=== PATIENT | female | born 1940 | race Caucasian/White ===

== ENCOUNTER 2019-02-22 19:01 | Inpatient (IN) | payer MEDICARE ==
--- NOTE | 2019-02-22 19:08 | NUR ---
PT IS UNABLE TO ANSWER QUESTIONS FOR SUICIDE RISK SCREENING.
[2019-02-22 19:16] VITALS: BP 152/104
--- NOTE | 2019-02-22 19:22 | NUR ---
PT UNABLE TO ANSWER QUESTIONS FOR DETAILED ASSESSMENT.
--- NOTE | 2019-02-22 19:25 | NUR ---
HAND OFF REPORT GIVEN TO ROMULO REYES
[2019-02-22 19:32] LABS: BASOPHILS 0.1 % (0-2); EOSINOPHILS 0.2 % (0-7); HEMATOCRIT 33.7 % (36.0-48.0); HEMOGLOBIN 11.3 g/dL (12-16); IMMATURE GRANULOCYTES 0.2 % (0-5); LYMPHOCYTES 5.7 % (15-50); MCH 29.4 pg (26.0-34.0); MCHC 33.5 g/dL (31.0-37.0); MCV 87.5 fL (80.0-100.0); MEAN PLATELET VOLUME 9.7 fL (7.4-10.4); MONOCYTES 3.2 % (2-11); NEUTROPHILS 90.6 % (40-80); PLATELET COUNT 161 10x3/uL (130-400); RBC 3.85 10x6/uL (4.00-5.40); RDW 13.9 % (11.5-14.5); WBC 10.3 10x3/uL (4.8-10.8)
[2019-02-22 19:42] VITALS: BP 136/94
[2019-02-22 19:43] LABS: INR 1.14 (0.85-1.17); PROTIME 14.1 SECONDS (11.6-15.0)
[2019-02-22 19:44] LABS: APTT 32.5 SECONDS (22.8-39.4)
[2019-02-22 19:53] VITALS: BP 116/69
[2019-02-22 20:05] LABS: ALBUMIN 3.4 g/dL (3.4-5.0); ALKALINE PHOSPHATASE 76 U/L (46-116); ALT (SGPT) 20 U/L (10-68); BILIRUBIN - TOTAL 0.27 mg/dL (0.2-1.3); CALC OSMOLALITY 285 mosm/kg (275-300); CALCIUM 8.2 mg/dL (8.5-10.1); CARBON DIOXIDE 21.2 mmol/L (21.0-32.0); CHLORIDE - SERUM 106 mmol/L (98-107); CREATININE - SERUM 1.1 mg/dL (0.6-1.3); GLUCOSE 157 mg/dL (74-106); POTASSIUM - SERUM 3.5 mmol/L (3.5-5.1); PROTEIN - SERUM 6.2 g/dL (6.4-8.2); SODIUM 141 mmol/L (136-145); UREA NITROGEN 18 mg/dL (7-18); eGFR NON AFRICAN AMERICAN 53 mL/min (90-120)
[2019-02-22 20:16] LABS: CKMB 1.8 U/L (0.0-3.6); CREATINE KINASE 93 UL (21-215); MAGNESIUM - SERUM 2.1 mg/dL (1.8-2.4); THYROID STIMULATING HORMONE 4.56 uIU/mL (0.36-3.74)
[2019-02-22 20:23] LABS: APPEARANCE CLEAR (CLEAR); COLOR YELLOW (YELLOW); GLUCOSE 50 mg/dL (NEGATIVE); NITRITE NEGATIVE (NEGATIVE); PROTEIN NEGATIVE (NEGATIVE); SPECIFIC GRAVITY 1.015 (1.005-1.020)
[2019-02-22 20:24] LABS: BILIRUBIN NEGATIVE (NEGATIVE); KETONE SMALL mg/dL (NEGATIVE); UROBILINOGEN NORMAL (NORMAL)
[2019-02-22 20:28] LABS: UDS - AMPHET NEGATIVE QUAL (NEGATIVE); UDS - BARB NEGATIVE QUAL (NEGATIVE); UDS - BENZO NEGATIVE QUAL (NEGATIVE); UDS - COCAINE NEGATIVE QUAL (NEGATIVE); UDS - OPIATE NEGATIVE QUAL (NEGATIVE); UDS - PCP NEGATIVE QUAL (NEGATIVE); UDS - THC NEGATIVE QUAL (NEGATIVE)
[2019-02-22 20:58] VITALS: BP 100/67
[2019-02-22 21:31] VITALS: BP 107/68
[2019-02-22 22:15] VITALS: BP 156/69
--- NOTE | 2019-02-22 22:56 | NUR ---
1954- CATH UA COMPLETED WITH IN/OUT CATH. ASEPTIC TECHNIQUE USED. 1957- TO CT ON STRETCHER BY STRATEGIC ADVISOR. 2009- RETURN TO ROOM FROM CT. 2058- REPEAT EKG COMPLETED.
--- NOTE | 2019-02-22 23:33 | NUR ---
PATIENT ARRIVED TO FLOOR. PATIENT NONVERBAL AT THIS TIME. WHEN ASKED A QUESTION SHE GRUNTS. SISTER STATES THAT SHE DOES NOT THAT ANY MEDICATION AT HOME.
[2019-02-23 01:41] LABS: CKMB 2.7 U/L (0.0-3.6); CREATINE KINASE 117 UL (21-215)
[2019-02-23 01:42] LABS: TROPONIN-I 0.161 ng/mL (0.000-0.060)
[2019-02-23 02:41] VITALS: BP 150/69; BMI 18.9
[2019-02-23 04:00] VITALS: BP 138/63
[2019-02-23 06:14] LABS: BASOPHILS 0.3 % (0-2); EOSINOPHILS 0.3 % (0-7); HEMATOCRIT 29.1 % (36.0-48.0); HEMOGLOBIN 9.6 g/dL (12-16); IMMATURE GRANULOCYTES 0.1 % (0-5); LYMPHOCYTES 11.5 % (15-50); MCH 28.9 pg (26.0-34.0); MCV 87.7 fL (80.0-100.0); MEAN PLATELET VOLUME 9.7 fL (7.4-10.4); MONOCYTES 8.2 % (2-11); NEUTROPHILS 79.6 % (40-80); PLATELET COUNT 139 10x3/uL (130-400); RBC 3.32 10x6/uL (4.00-5.40); RDW 13.9 % (11.5-14.5)
[2019-02-23 06:21] LABS: WBC 7.7 10x3/uL (4.8-10.8)
[2019-02-23 07:00] LABS: CALCIUM 8.1 mg/dL (8.5-10.1); CHLORIDE - SERUM 110 mmol/L (98-107); CKMB 2.8 U/L (0.0-3.6); CREATINE KINASE 146 UL (21-215); CREATININE - SERUM 0.9 mg/dL (0.6-1.3); PHOSPHOROUS 3.7 mg/dL (2.5-4.9); POTASSIUM - SERUM 3.8 mmol/L (3.5-5.1); SODIUM 143 mmol/L (136-145); eGFR NON AFRICAN AMERICAN 64 mL/min (90-120)
[2019-02-23 07:01] LABS: CALC OSMOLALITY 284 mosm/kg (275-300); GLUCOSE 100 mg/dL (74-106); UREA NITROGEN 12 mg/dL (7-18)
--- NOTE | 2019-02-23 07:46 | NUR ---
AM ROUNDS- PT RESTING COMFORTABLY IN BED, A/O X2, RESP EVEN AND NONALABORED ON RA. LT AC IV SL. MONITOR SHOWING SR 89. SPEECH IS A LITTLE GARBLE. HELPED PT TO BATHROOM AND BACK TO BED X1 ASSIST. PT NPO UNTIL SEEN BY PERFUME COMPOUNDER. PT'S SISTER AT BEDSIDE, CALL LIGHT IN REACH, NAD NOTED, WILL CONTINUE PLAN OF CARE.
[2019-02-23 08:33] VITALS: BP 137/59
--- NOTE | 2019-02-23 09:39 | MORECARE ---
CASE MANAGEMENT DISCHARGE SUMMARY PATIENT: CAMRON CLEARY UNIT: [id number] ADM DATE: 02/22/19 AGE: 79 : 40 SEX: F ROOM/BED: D.2123 AUTHOR: EZIO DAVE PHYSICIAN: REFERRING PHYSICIAN: ANDREW TOVAR MD DATE OF SERVICE: 02/23/19 Discharge Plan Patient Name: CAMRON CLEARY [facility] [facility] 1940 Planned Disposition: Anticipated Discharge Date: Discharge Date: Expected LOS: Initial Reviewer: [email or web address] Initial Review Date: 02/22/2019 Generated: 02/23/19 10:39 am Patient Name: CAMRON CLEARY Page [id number] at 0939 All edits/amendments must be made on the electronic document DICTATION DATE: 02/23/19937 OPTOMETRY DOCTOR: ASHLEY 02/23/19937 RPT#: [id number] DC DATE: STATUS: ADM IN [facility] [address] [place] [address] END OF REPORT
[2019-02-23 11:52] VITALS: BP 142/62
[2019-02-23 13:22] LABS: CKMB 2.6 U/L (0.0-3.6); CREATINE KINASE 165 UL (21-215); TROPONIN-I 0.096 ng/mL (0.000-0.060)
--- NOTE | 2019-02-23 13:50 | NUR ---
ASSISTED PT TO BATHROOM AND BACK TO BED, PT HAD SMALL FORMED BM. PT DENIES ANY OTHER NEEDS AT THIS TIME. CALL LIGHT IN REACH, FAMILY AT BEDSIDE, NAD NOTED, WILL CONTINUE TO MONITOR.
--- NOTE | 2019-02-23 15:00 | NUR ---
PT RESTING COMFORTABLY IN BED, DENIES ANY NEEDS AT THIS TIME. FAMILY AT BEDSIDE, CALL LIGHT IN REACH, NAD NOTED, WILL CONTINUE TO MONITOR.
[2019-02-23 15:46] VITALS: BP 138/68
--- NOTE | 2019-02-23 19:34 | NUR ---
RESUMING PATIENT CARE. PATIENT IS ALERT AND PLEASANTLY CONFUSED. RESPIRATIONS ARE EVEN AND UNLABORED. NO S/S OF DISTRESS. NO C/O PAIN. CALL LIGHT WITHIN REACH. FAMILY MEMBER CAME TO NURSES STATIONS WITH CONCERNS THAT SHE DOES NOT BELIEVE THAT IT IS SAFE ANYMORE FOR THE 2 SISTERS TO BE LIVING TOGETHER ANYMORE. THE FAMILY ARE IN THE BEGINNING STAGES OF GETTING THE 2 SISTERS ADEQUATE CARE.
[2019-02-23 20:00] VITALS: BP 148/68
[2019-02-24 04:00] VITALS: BP 152/72
[2019-02-24 05:55] LABS: ANION GAP 13.6 mmol/L (8-16); CALCIUM 7.8 mg/dL (8.5-10.1); CARBON DIOXIDE 23.7 mmol/L (21.0-32.0); POTASSIUM - SERUM 3.3 mmol/L (3.5-5.1)
[2019-02-24 07:01] LABS: BASOPHILS 0.2 % (0-2); HEMATOCRIT 32.5 % (36.0-48.0); HEMOGLOBIN 10.6 g/dL (12-16); IMMATURE GRANULOCYTES 0.3 % (0-5); LYMPHOCYTES 9.6 % (15-50); MCHC 32.6 g/dL (31.0-37.0); MCV 88.8 fL (80.0-100.0); MEAN PLATELET VOLUME 10.2 fL (7.4-10.4); MONOCYTES 9.8 % (2-11); NEUTROPHILS 79.1 % (40-80); PLATELET COUNT 145 10x3/uL (130-400); RBC 3.66 10x6/uL (4.00-5.40); RDW 14.1 % (11.5-14.5); WBC 6.2 10x3/uL (4.8-10.8)
[2019-02-24 08:13] VITALS: BP 182/84
--- NOTE | 2019-02-24 09:37 | NUR ---
TELEMETRY SR. FAMILY AT BS. CALL LIGHT IN REACH. WILL CONT. PLAN OF CARE.
[2019-02-24 12:21] VITALS: BP 147/73
[2019-02-24 16:47] VITALS: BP 158/77
--- NOTE | 2019-02-24 19:57 | NUR ---
RESUMING PATIENT CARE. PATIENT IS AERT AND PLEASANTLY CONFUSED. RESPIRATIONS ARE EVEN AND UNLABORED. NO S/S OF DISTRESS. NO C/O PAIN. CALL LIGHT WITHIN REACH. BED ALARM ENABLED. WILL CPOC.
[2019-02-24 20:00] VITALS: BP 140/79; BP 145/71
[2019-02-25] VITALS: BP 136/70
[2019-02-25 05:00] VITALS: BP 131/60
--- NOTE | 2019-02-25 07:47 | NUR ---
ASSESSMENT DONE. DENIES NEEDS.
[2019-02-25 08:01] LABS: BASOPHILS 0.3 % (0-2); EOSINOPHILS 1.8 % (0-7); HEMATOCRIT 34.1 % (36.0-48.0); HEMOGLOBIN 11.4 g/dL (12-16); IMMATURE GRANULOCYTES 0.3 % (0-5); LYMPHOCYTES 13.1 % (15-50); MCH 29.2 pg (26.0-34.0); MCHC 33.4 g/dL (31.0-37.0); MCV 87.4 fL (80.0-100.0); MEAN PLATELET VOLUME 10.1 fL (7.4-10.4); MONOCYTES 10.8 % (2-11); NEUTROPHILS 73.7 % (40-80); PLATELET COUNT 159 10x3/uL (130-400); RDW 14.1 % (11.5-14.5); WBC 6.1 10x3/uL (4.8-10.8)
[2019-02-25 08:18] LABS: ANION GAP 12.1 mmol/L (8-16); CALCIUM 8.5 mg/dL (8.5-10.1); CARBON DIOXIDE 28.9 mmol/L (21.0-32.0); CREATININE - SERUM 1.1 mg/dL (0.6-1.3); MAGNESIUM - SERUM 2.1 mg/dL (1.8-2.4)
[2019-02-25 08:19] LABS: PHOSPHOROUS 3.8 mg/dL (2.5-4.9)
--- NOTE | 2019-02-25 09:40 | EC ---
PATIENT:CAMRON CLEARY DATE OF SERVICE: 02/22/19 SEX: F MEDICAL RECORD: [id number] DATE OF : 40 LOCATION:D.M2 D.212 AGE OF PATIENT: 78 ADMISSION DATE: 02/22/19 REFERRING PHYSICIAN: INTERPRETING PHYSICIAN: MERRITT MUÑOZ MD ECHOCARDIOGRAM REPORT ECHO CHARGES 4 ECHO COMPLETE Date: 02/23/19 CLINICAL DIAGNOSIS: SVT ECHOCARDIOGRAPHIC MEASUREMENTS (adult normal given) AC root (d.<3.7cm) 2.6 cm LV Septum d (<1.2 cm> 0.60 cm Valve Excursion 1.6 cm LV Septum (systole) 0.90 cm Left Atria (s.<4.0cm> 2.3 cm LVPW d(<1.2cm) 0.70 cm RV (d.<2.3cm) 2.4 cm LVPW (sytole) 1.2 cm LV diastole(<5.6CM) 4.0 cm MV E-F(>70mm/sec) cm LV systole 2.9 cm LVOT Diameter 1.8 cm MV exc.(>10mm) 0.80 cm Est.ejection fraction (50-75%) % DOPPLER: LVIT cm/sec A 90.0 cm/sec E 123 cm/sec LA cm/sec RVSP 37 mmHg LVOT 116 cm/sec AOP1/2T 395 m/s Asc. Ao 135 cm/sec RVOT 47 cm/sec RA cm/sec PA 73 cm/sec AV Gradient Peak 7.32 mmHg AV Mean 3.98 mmHg AV Area 1.9 cm MV Gradient Peak 8.93 mmHg MV Mean 4.36 mmHg MV Area cm COMMENTS: Television News Photographer: [place] VANESSA Quality Compliance Manager: 1 Dr. Muñoz TAPE# PACS Pericardial Effusion N DATE OF SERVICE: FINDINGS: 1. Left ventricular chamber size is within normal limits. Left ventricular systolic function is normal. Overall ejection fraction estimated at 60%. 2. Left atrium, right atrium, and right ventricular chamber sizes are within normal limits. 3. Valvular structures have normal structure and motion. 4. Doppler interrogation reveals mild mitral regurgitation, mild tricuspid regurgitation, no other valvular insufficiency or stenosis. Pulmonary systolic ECHOCARDIOGRAM REPORT [id number] CAMRON CLEARY pressure is estimated 37 mmHg. 5. No evidence of pericardial effusion or left ventricular thrombus. TRANSINT:[id number] Voice Confirmation ID: [id number] DOCUMENT ID: [id number] MERRITT MUÑOZ MD at 0940 CC: [id number] DICTATION DATE: 02/23/19 155 MICROCOMPUTER TECHNICIAN: 02/24/19 0123 ADM IN [facility] [address] [place] [address]
[2019-02-25 09:55] VITALS: BP 144/63
--- NOTE | 2019-02-25 11:15 | MORECARE ---
CASE MANAGEMENT DISCHARGE SUMMARY PATIENT: CAMRON CLEARY UNIT: [id number] ADM DATE: 02/22/19 AGE: 78 : 40 SEX: F ROOM/BED: D.2123 AUTHOR: EZIO DAVE PHYSICIAN: REFERRING PHYSICIAN: ANDREW TOVAR MD DATE OF SERVICE: 02/25/19 Discharge Plan Patient Name: CAMRON CLEARY [facility] [facility] 1940 Planned Disposition: Home Anticipated Discharge Date: Discharge Date: Expected LOS: Initial Reviewer: [email or web address] Initial Review Date: 02/22/2019 Generated: 02/25/19 12:15 pm Last DP export: 02/23/19 8:39 a Patient Name: CAMRON CLEARY Page [id number] at 1115 All edits/amendments must be made on the electronic document DICTATION DATE: 02/25/19 1115 SENIOR ADVISOR: ASHLEY 02/25/19 1115 RPT#: [id number] DC DATE: STATUS: ADM IN [facility] [address] [place] [address] END OF REPORT
[2019-02-25 12:49] VITALS: BP 117/63
[2019-02-25 14:25] VITALS: BMI 18.8
--- NOTE | 2019-02-25 14:36 | NUR ---
I have reviewed this patient and I concur with the Shift Assessment completed by the Licensed Practical Nurse today this shift.
--- NOTE | 2019-02-25 17:13 | NUR ---
WITHOUT CHANGES OR DISTRESS NOTED AT THIS TIME. DENIES NEEDS.
[2019-02-25 17:57] VITALS: BP 134/68
--- NOTE | 2019-02-25 18:55 | MORECARE ---
CASE MANAGEMENT DISCHARGE SUMMARY PATIENT: CAMRON CLEARY UNIT: [id number] ADM DATE: 02/22/19 AGE: 78 : 40 SEX: F ROOM/BED: D.5693 AUTHOR: EZIO DAVE PHYSICIAN: REFERRING PHYSICIAN: ANDREW TOVAR MD DATE OF SERVICE: 02/25/19 Discharge Plan Patient Name: CAMRON CLEARY [facility] [facility] 1940 Planned Disposition: Home Anticipated Discharge Date: Discharge Date: Expected LOS: Initial Reviewer: [email or web address] Initial Review Date: 02/22/2019 Generated: 02/25/19 7:55 pm Comments DCP- Discharge Planning Updated by [email or web address]: Selina Avina on 02/25/19 5:[address] THE PATIENT LIVES AT [facility] WITH HER SISTER. THEIR COUSIN TAMMY PERALTA WILL BE STAYING WITH THEM UNTIL THE NEPHEW GETS RELOCATED IN [place], [place]. HE IS PLANNING TO FIND A [facility]AC[facility] FOR [facility]. NO ONE IN THE ROOM COULD GIVE A PCP OR PHARMACY NAME. THE NEPHEW IS MOVING TODAY AND TOMORROW. HE CAN BE REACHED BY PHONE. JIMMY HOLT- [phone] LAURENT LOUISE -SISTER- TAMMY PERALTA- COUSIN PATIENT WAS LETHARGIC YESTERDAY. SHE IS MORE ALERT TODAY. HR WELL CONTROLLED. HAD NEW ONSET SVT AND AFIB YESTERDAY. THERE ARE NO HOME HEALTH OR COMMUNITY SERVICES AT THIS TIME. CM TO FOLLOW. WILL NEED TO CONTACT THE NEPHEW. Last DP export: 02/25/19 10:15 a Patient Name: CAMRON CLEARY Page [phone] at 1855 All edits/amendments must be made on the electronic document DICTATION DATE: 02/25/191853 ANIMAL RESCUER: ASHLEY 02/25/191853 RPT#: [id number] DC DATE: STATUS: ADM IN [facility] [address] [place] [address] END OF REPORT
[2019-02-25 20:00] VITALS: BP 141/62
--- NOTE | 2019-02-25 21:02 | NUR ---
INITIAL ROUNDS COMPLETED AT 1915 HRS. PT DENIED ANY DISCOMFORT. ASSESSMENT COMPLETED AT 5HRS. VSS. SR PER CM HR 91. PT [place]. ALERT AND ORIENTED TO PERSON AND PLACE. REORIENTED TO TIME. IV TO R WRIST SL. LUNGS ESSENTIALLY CTA. HEART TONES S1 S2. PM MEDS GIVEN. PT CURRENTLY WATCHING TV. SR UP X2, CALL LIGHT WITHIN REACH AND BED ALARM ON.
--- NOTE | 2019-02-25 21:55 | NUR ---
PT ASSISTED TO BR. VOIDED MODERATE AMOUNT OF URINE. ASSISTED BACKTO BED. SR UP X2,CALL LIGHT WITHIN REACH AND BED ALARM ON.
[2019-02-26] VITALS: BP 128/68
--- NOTE | 2019-02-26 00:40 | NUR ---
PT AWAKE; DENIES ANY DISCOMFORT. SR UP X2, CALL LIGHT WITHIN REACH AND BED ALARM ON.
--- NOTE | 2019-02-26 02:46 | NUR ---
PT RESTING WITH EYES CLOSED. RESP EVEN AND REGULAR. SR UP X2, CALL LIGHT WITHIN REACH AND ABED ALARM ON.
[2019-02-26 04:00] VITALS: BP 143/74
--- NOTE | 2019-02-26 04:22 | NUR ---
PT RESTING WITH EYES CLOSED. RESP EVEN AND REGULAR. SR UP X2, CALL LIGHT WITHIN REACH AND BED ALARM ON.
[2019-02-26 04:24] LABS: BASOPHILS 0.3 % (0-2); EOSINOPHILS 3.1 % (0-7); HEMATOCRIT 32.4 % (36.0-48.0); HEMOGLOBIN 10.8 g/dL (12-16); IMMATURE GRANULOCYTES 0.2 % (0-5); LYMPHOCYTES 12.7 % (15-50); MCH 28.9 pg (26.0-34.0); MCHC 33.3 g/dL (31.0-37.0); MCV 86.6 fL (80.0-100.0); MEAN PLATELET VOLUME 9.9 fL (7.4-10.4); NEUTROPHILS 71.7 % (40-80); PLATELET COUNT 166 10x3/uL (130-400); RBC 3.74 10x6/uL (4.00-5.40); WBC 5.8 10x3/uL (4.8-10.8)
[2019-02-26 04:35] LABS: ANION GAP 12.7 mmol/L (8-16); CALCIUM 8.8 mg/dL (8.5-10.1); CARBON DIOXIDE 25.3 mmol/L (21.0-32.0); MAGNESIUM - SERUM 2.1 mg/dL (1.8-2.4); PHOSPHOROUS 3.2 mg/dL (2.5-4.9)
[2019-02-26 04:36] LABS: CREATININE - SERUM 0.8 mg/dL (0.6-1.3)
--- NOTE | 2019-02-26 06:10 | NUR ---
VSS THROUGHOUT NIGHT. SR PER CM. PT DENIED ANY DISCOMFORT. NEEDS MET; WILL CONTINUE TO MONITOR.
--- NOTE | 2019-02-26 08:37 | NUR ---
AM MEDICATIONS GIVEN AT THIS TIME. PT UP TO CHAIR DENIES ANY NEEDS AT THIS TIME. CALL LIGHT IN REACH, FAMILY AT BEDSIDE, NAD NOTED, WILL CONTINUE TO MONITOR.
[2019-02-26 10:08] VITALS: BP 142/68
--- NOTE | 2019-02-26 13:27 | NUR ---
PT UP TO CHAIR, DENIES ANY NEEDS AT THIS TIME. FAMILY AT BEDSIDE, CALL LIGHT IN REACH, NAD NOTED, WILL CONTINUE TO MONITOR.
[2019-02-26 18:55] VITALS: BP 135/61
--- NOTE | 2019-02-26 19:47 | NUR ---
INITIAL ROUNDS AND ASSESSMENT COMPLETED. PT RESTING. NO DISTRESS. MONITOR AND CPOC. CALL LIGHT IN REACH.
[2019-02-26 20:22] VITALS: BP 136/66
[2019-02-26 23:57] VITALS: BP 137/71
--- NOTE | 2019-02-27 03:53 | NUR ---
RESTING IN BED WITH EYES CLOSED. RESPS EVEN/NONLABORED. NO DISTRESS. IVF AT [facility] FOR [facility]. MONITOR AND CPOC.
[2019-02-27 05:38] VITALS: BP 152/79
[2019-02-27 06:41] LABS: BASOPHILS 0.9 % (0-2); EOSINOPHILS 5.1 % (0-7); HEMATOCRIT 32.3 % (36.0-48.0); HEMOGLOBIN 10.6 g/dL (12-16); IMMATURE GRANULOCYTES 0.4 % (0-5); LYMPHOCYTES 17.6 % (15-50); MCH 28.6 pg (26.0-34.0); MCHC 32.8 g/dL (31.0-37.0); MCV 87.3 fL (80.0-100.0); MEAN PLATELET VOLUME 9.7 fL (7.4-10.4); MONOCYTES 10.9 % (2-11); NEUTROPHILS 65.1 % (40-80); PLATELET COUNT 168 10x3/uL (130-400); RDW 13.9 % (11.5-14.5); WBC 4.5 10x3/uL (4.8-10.8)
[2019-02-27 07:10] LABS: ANION GAP 10.9 mmol/L (8-16); CALCIUM 8.6 mg/dL (8.5-10.1); CARBON DIOXIDE 27.4 mmol/L (21.0-32.0); CREATININE - SERUM 0.8 mg/dL (0.6-1.3); MAGNESIUM - SERUM 1.8 mg/dL (1.8-2.4); PHOSPHOROUS 3.8 mg/dL (2.5-4.9); POTASSIUM - SERUM 4.3 mmol/L (3.5-5.1)
--- NOTE | 2019-02-27 07:29 | NUR ---
PT IN BED, A/O X4, RESP EVEN AND NONLABORED ON RA. ANTIBIOTIC DONE INFUSING, SL RT FA IV, ORANGE CAP IN PLACE. MONITOR SHOWING SR WITH RATE OF 73, PT REQUESTED A CUP OF ICE WATER WILL PROVIDE PT WITH WATER. FAMILY AT BEDSIDE, BEDSIDE RAILS X2, CALL LIGHT IN REACH, NAD NOTED, WILL CONTINUE PLAN OF CARE.
--- NOTE | 2019-02-27 08:05 | NUR ---
NOTIFIED BY TEXTILE CONVERSION MANAGER JUDY OF HR OF 150. WENT TO CHECK ON PT, PT IN BED, JUST WAS BROUGHT BACK FROM [facility]. PT DENIES ANY PAIN OR DISCOMFORT AT THIS TIME, EATING HER BREAKFAST. CALL LIGHT IN REACH, FAMILY AT BEDSIDE, WILL CONTINUE TO MONITOR.
[2019-02-27 08:45] VITALS: BP 151/77
[2019-02-27 08:51] VITALS: BP 151/77
--- NOTE | 2019-02-27 09:16 | NUR ---
NOTIFIED DR. ROBERT OF HIGH HR IN THE 150S. PT NOW RUNNING SR 89. NO NEW ORDERS AT THIS TIME.
[2019-02-27 12:07] VITALS: BP 152/79
[2019-02-27] MEDS ORDERED: CARDIZEM30 MG PO (12:40)
[2019-02-27] MEDS ORDERED: OMNICEF300 MG PO (12:40)
--- NOTE | 2019-02-27 12:55 | NUR ---
NOTIFIED BY CREATIVE ENGAGEMENT DIRECTOR THAT PT'S HEART RATE IS NOW IN THE 140S. NOTIFIED BRANDO TIWARI, WHO STATED TO CALLED DR. ROBERT. 1300-CALLED DR. ROBERT AND INFORMED HIM ABOUT PT'S HEART RATE. NEW ORDER TO ADD SOTALOL 80MG BID.
[2019-02-27] MEDS ORDERED: BETAPACE 80 MG80 MG PO (13:16)
--- NOTE | 2019-02-27 14:26 | NUR ---
MONITOR NOW SHOWING SR 83. PT RESTING COMFORTABLY IN BED, DENIES ANY NEEDS AT THIS TIME. CALL LIGHT IN REACH, NAD NOTED, WILL CONTINUE TO MONITOR.
--- NOTE | 2019-02-27 15:17 | NUR ---
MEDICATIONS CALLED IN TO [facility] ON [address] TALKED TO GEMMA, PHARMACIST.
--- NOTE | 2019-02-27 15:43 | NUR ---
PROVIDED VERBAL AND WRITTEN DISCHARGE TEACHING TO PT, AND FAMILY, ALL VERBALIZED UNDERSTANDING REGARDING TEACHING. D/C RT FA IV WITH CATHETER TIP INTACT. PT LEFT UNIT VIA WHEELCHAIR, WITH ALL BELONGINGS, ACCOMPANIED BY FAMILY.
--- NOTE | 2019-03-01 07:59 | MORECARE ---
CASE MANAGEMENT DISCHARGE SUMMARY PATIENT: CAMRON CLEARY UNIT: [id number] ADM DATE: 02/22/19 AGE: 78 : 40 SEX: F ROOM/BED: D.8629 AUTHOR: EZIO DAVE PHYSICIAN: REFERRING PHYSICIAN: ANDREW TOVAR MD DATE OF SERVICE: 03/01/19 Discharge Plan Patient Name: CAMRON CLEARY Facility: [facility]:[place] : 1940 Planned Disposition: Home Anticipated Discharge Date: 02/27/19 Discharge Date: 02/27/2019 Expected LOS: 5 Initial Reviewer: [email or web address] Initial Review Date: 02/22/2019 Generated: 03/01/19 8:59 am Comments DCP- Discharge Planning Updated by [id number]: Selina Avina on 02/25/19 5:[address] THE PATIENT LIVES AT [facility] WITH HER SISTER. THEIR COUSIN TAMMY PERALTA WILL BE STAYING WITH THEM UNTIL THE NEPHEW GETS RELOCATED IN [place], [place]. HE IS PLANNING TO FIND A FACILITY FOR THEM IN [facility]. NO ONE IN THE ROOM COULD GIVE A PCP OR PHARMACY NAME. THE NEPHEW IS MOVING TODAY AND TOMORROW. HE CAN BE REACHED BY PHONE. JIMMY HOLT- [phone] LAURENT LOUISE -SISTER- TAMMY PERALTA- COUSIN PATIENT WAS LETHARGIC YESTERDAY. SHE IS MORE ALERT TODAY. HR WELL CONTROLLED. HAD NEW ONSET SVT AND AFIB YESTERDAY. THERE ARE NO HOME HEALTH OR COMMUNITY SERVICES AT THIS TIME. CM TO FOLLOW. WILL NEED TO CONTACT THE NEPHEW. Coverage Notice Reviewer: [email or web address] Urszula Hart Notice Issued Date-Time: 02/27/2019 12:50 Notice Type: IM Discharge Notice Notice Delivered To: Patient Relationship to Patient: Loan Secretary Name: Delivery Method: HAND - Hand Delivered Liz Days: Prior Verbal Notification: Recipient Understood Notice: Yes Recipient Signature: Yes Med Rec Note Co-signed by Attending: Coverage Notice Comment: Last DP export: 02/25/19 5:55 p Patient Name: CAMRON CLEARY Page [id number] at 0759 All edits/amendments must be made on the electronic document DICTATION DATE: 03/01/19 0758 TRANSPLANT SURGEON: ASHLEY 03/01/19 0758 RPT#: [id number] DC DATE:02/27/19 STATUS: DIS IN [facility] [address] [facility] [place] [address] END OF REPORT
== END 2019-02-27 15:46 | disposition home or self-care (01) | DRG 193 ==
LOC: EDBD 19:01 → D.ER 19:01 → D.M2 21:08 → EDBD 21:08 → D.M2 02-27 15:46
PROVIDERS: Family Medicine; ADMIT Family Medicine; ATTEND Family Medicine
DX: J18.1 Lobar pneumonia, unspecified organism (principal); G93.41 Metabolic encephalopathy; R55 Syncope and collapse; I48.2 Chronic atrial fibrillation; E87.6 Hypokalemia